=== PATIENT | female | born 1985 | race Hispanic/Latino ===

== ENCOUNTER 2024-12-18 19:09 | Emergency (ER) | payer SELFPAY ==
[~2024-12-18] VITALS: Ht 149.9 cm; Wt 52.6 kg
[2024-12-18 19:14] VITALS: BP 132/86; PULSE 93; RESP 20; TEMP 98.5
[2024-12-18] MEDS ORDERED: MECL-302 PO (19:19)
[2024-12-18] MEDS ORDERED: OFLO5DRO OP (19:19)
[2024-12-18] MEDS ORDERED: KETO10TA2 PO (19:19)
[2024-12-18] MEDS ORDERED: FLUT16H NS (19:21)
--- NOTE | 2024-12-18 19:21 | ERN ---
General Chief Complaint: Earache Stated Complaint: EARACHE Time Seen by MD: 19:10 Time Seen by Midlevel: 19:10 Source: patient History of Present Illness Initial Comments 39-year-old female presenting to the emergency department for evaluation of sudden onset of left ear pain. Patient states she was on an airplane and just landed several hours ago in his reporting significant pain to her left ear. She believes she may have a ruptured tympanic membrane. Allergies: Coded Allergies: ampicillin (Unverified Allergy, Unknown, 12/18/24) Home Meds Active Scripts Fluticasone Propionate (Flonase Nasal [place]) 50 Mcg/Actuation [place], 2 SPRAY NS DAILY, #16 GM 0 Refills Prov:VIVI FRANCISCO 12/18/24 Ketorolac Tromethamine (Ketorolac Tromethamine) 10 Mg Tablet, 1 TAB PO TID for pain for 5 Days, #15 TAB 0 Refills Prov:VIVI FRANCISCO 12/18/24 Meclizine HCl (Meclizine HCl) 25 Mg Tablet, 25 MG PO BID for vertigo for 7 Days, #14 TAB 0 Refills Prov:VIVI FRANCISCO 12/18/24 Ofloxacin (Ofloxacin) 0.3 % Drops, 1 DROP OP QID for 7 Days, #5 ML 0 Refills Prov:VIVI FRANCISCO 12/18/24 ROS Dictation CONSTITUTIONAL: Negative except for HPI HEAD/FACE: Negative except for HPI EENT: Negative except for HPI RESPIRATORY: Negative except for HPI GASTROINTESTINAL/ABDOMINAL: Negative except for HPI GENITOURINARY: Negative except for HPI MUSCULOSKELETAL: Negative except for HPI INTEGUMENTARY: Negative except for HPI NEUROLOGICAL/PSYCH: Negative except for HPI HEMATOLOGIC/LYMPHATIC: Negative except for HPI All Systems Negative, Except as noted above. 13 point review of systems assessed and all negative except for above. Physical Exam Physical Exam Dictation Vital Signs reviewed General Appearance: Alert, oriented x 3, no acute distress, well developed, nourished. Head and Face: non-traumatic. Eyes: PERRL, pink conjunctivas, eyelid no trauma, anterior chamber with arcus senilis. Ears: Bulging tympanic membrane to the left side with mild erythema, right tympanic membrane normal Nose: No discharge, no bleeding. Oropharynx: Mouth normal, tongue pink, pharynx clear,no erythema, tonsils no exudates, no abscesses noted, mucous membrane moist Neck: Supple, non-tender, no thyromegaly, no masses, no JVD, no bruits Breast:Deferred Chest:No tenderness, no crepitus, no paradoxical movement, no retractions Lungs:Clear, well-ventilated, symmetric, no rales, no wheezing, no rhonchi, no stridor, good breath sounds bilaterally Heart: Regular rate, regular rhythm, no murmur, no gallops Vascular: no peripheral edema, Abdomen: Soft, positive bowel sounds, nondistended, no guarding, nontender, no rebound, no masses no hepatomegaly, no splenomegaly, no Mohamud's sign, no hernias. Rectal: Deferred Genital: Deferred Neurological: Normal speech, motor function intact, sensory function intact Musculoskeletal: Neck nontender, full range of motion, back nontender, full range of motion, Extremities: nontender, full range of motion Skin: Color pink, dry, no turgor, no rash, no lacerations, no abrasions, no contusions. Lymphatic: Deferred MDM MDM: Differential diagnosis: Otitis media, otitis externa, barotrauma There are no social concerns with this patient. Prescription drug management Prescriptions will include: Ciprodex, Toradol, Flonase Medical management and examination interpretation discussions were had by me with other qualified healthcare professionals as indicated for the patient's care. ED Course Orders Procedure Category Date Status Time Ketorolac PHA 12/18/24 Complete Tromethamine 30mg/Ml 19:30 Current Medications Medications (Trade) Dose Ordered Sig/Rui Route PRN Reason Start Time Stop Time Status Last Admin Dose Admin Ketorolac Tromethamine (toRADol) 30 mg ONCE ONCE IM 12/18/24 19:30 12/18/24 19:31 DC 12/18/24 19:25 Vital Signs Date Time Temp Pulse Resp B/P (MAP) Pulse Ox O2 Delivery O2 Flow Rate FiO2 12/18/24 19:14 98.4 93 20 132/86 99 Room Air DX & DISP Disposition: Discharge Departure Impression: Primary Impression: Otitic barotrauma of left ear Condition: Stable Scripts Fluticasone Propionate (Flonase Nasal [place]) 50 Mcg/Actuation [place] 2 SPRAY NS DAILY, #16 GM 0 Refills Prov: VIVI FRANCISCO 12/18/24 Ketorolac Tromethamine (Ketorolac Tromethamine) 10 Mg Tablet 1 TAB PO TID for pain for 5 Days, #15 TAB 0 Refills Prov: VIVI FRANCISCO 12/18/24 Meclizine HCl (Meclizine HCl) 25 Mg Tablet 25 MG PO BID for vertigo for 7 Days, #14 TAB 0 Refills Prov: VIVI FRANCISCO 12/18/24 Ofloxacin (Ofloxacin) 0.3 % Drops 1 DROP OP QID for 7 Days, #5 ML 0 Refills Prov: VIVI FRANCISCO 12/18/24 Additional Instructions: Your history and physical examination is consistent with a ruptured tympanic membrane from barotrauma. Resolution usually in 5-7 days but can take to two weeks. If your symptoms persist or worsen please follow up with your primary care doctor for outpatient follow up to ENT. Referrals: SELF,REFERRAL (PCP) I have reviewed the case, and I agree with, Diagnosis and Plan I performed the substantive portion of the visit. I have reviewed and personally made and approve the management plan that is documented in the note by myself or the CASSI. I acknowledge for responsibility for the patient's management plan. VIVI FRANCISCO Dec 18, 2024 19:21
== END 2024-12-18 19:38 | disposition home or self-care (01) ==
LOC: EDH 19:09
DX: T70.0XXA Otitic barotrauma, initial encounter (principal); Z88.0 Allergy status to penicillin; Z79.899 Other long term (current) drug therapy; X58.XXXA Exposure to other specified factors, initial encounter
CPT/HCPCS: 99283; 96372; J1885